=== PATIENT | female | born 1955 | race Caucasian/White ===

== ENCOUNTER 2016-09-20 08:59 | Outpatient (CLI) | payer OTHER ==
--- NOTE | 2016-09-20 10:59 | DIAGNOSTIC IMAGING REPORT ---
PROCEDURE: MG BILATERAL SCREENING W/CAD INDICATION: SCREENING TECHNIQUE: Bilateral CC and MLO digital views. COMPARISON: Compared to 08/31/2015, 08/31/2014, and 06/16/2011. FINDINGS: Computer-aided detection applied. Mildly to moderately dense with a few dystrophic calcifications. No change. IMPRESSION: 1. Negative mammogram. RESULT CODE: 1- Negative. A. A negative report should not delay biopsy if a dominant or clinically suspicious mass is present. 10-15% of cancers are not identified by x-ray. B. A negative report may reinforce clinical impression. C. Adenosis and dense breasts may obscure an underlying neoplasm. D. False positive reports average 6-10%. E.. A yearly screening mammogram is recommended. A reminder letter will be scheduled.
[2016-10-24] MEDS ORDERED: ASPIRIN81 M1 PO (17:10)
[2016-10-24] MEDS ORDERED: CRANBERRY300 MG PO (17:28)
[2016-10-24] MEDS ORDERED: FLAX SEED OIL1300 MG PO (17:28)
[2016-10-24] MEDS ORDERED: [UNRECOGNIZED DRUG - CODE] PO (17:37)
[2016-10-24] MEDS ORDERED: VITAMIN D-31000 UNIT PO (17:37)
== END 2016-09-20 23:00 ==
LOC: MAM SRH 08:59
DX: Z12.31 Encounter for screening mammogram for malignant neoplasm of breast (principal)